=== PATIENT | female | born 2005 | race Caucasian/White ===

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

== ENCOUNTER 2025-02-17 23:45 | Emergency (ER) | payer MEDICAID, SELFPAY ==
[2025-02-17 23:50] VITALS: BMI 20.9
[2025-02-17 23:58] VITALS: BP 151/100; PULSE 80; RESP 18; TEMP 36.9; O2SAT 99
[2025-02-18 00:32] LABS: Bilirubin Urine Negative (Negative); Blood Urine Negative (Negative); Glucose Urine UA Negative (Normal); HCG Qualitative Urine. Negative (Negative); Ketones Urine Trace (Negative); Leukocyte Esterase Urine Trace (Negative); Nitrate Urine Negative (Negative); Protein Urine Negative (Negative); Specific Gravity, Urine 1.024 (1.005-1.030); Urine Appearance Cloudy (CLEAR); Urine Color Yellow (Yellow)
[2025-02-18 00:34] LABS: Add Urine Microscopic? YES; Bacteria Urine 3+ /hpf; WBC Urine 0-5 /hpf (0-5)
--- NOTE | 2025-02-18 00:34 | W.ED.PSYCHS ---
Documented by User: ABNER Siu 02/18/25 02:34 HPI - Psych General: Chief Complaint: Psychiatric Symptoms Stated Complaint: mhe Time Seen by Provider: 02/18/25 00:00 History of Present Illness: Patient is 19-year-old female presents to ED after cutting her wrist. She denies any suicide intent. She said that she knows how deep cut it, and she does not want to . She was anxious because she had no one to talk to and typically she listens to music or drawls. She states that she is chronically on Adderall by [facility] doctor at [facility], otherwise she does not have any methamphetamines in her system and does utilize marijuana. She states that she recently found out she was , her boyfriend left her for a 15-year-old girl, and she is bad about cutting herself. She states her last cutting was 3 months ago. She was not suicidal at that time either per patient. The boyfriend called the police, the police on scene told her she had to come to the hospital and be checked out or she replaced on 96-hour hold. Patient stated she came on a voluntary basis so she would be placed on a 96-hour hold. Associated symptoms: Deny auditory hallucinations, depression, homicidal ideation or suicidal ideation Related Data Home Medications ?Medication ?Instructions ?Recorded ?Confirmed No Known Home Medications 11/04/24 11/04/24 Allergies Allergy/AdvReac Type Severity Reaction Status Date / Time No Known Allergies Allergy Unverified 10/27/24 13:37 Review of Systems Const: Denies: fever(s) or chills Eyes: Denies: change in vision or blurry vision Card: Denies: chest pain or palpitations Resp: Denies: dyspnea or non-productive cough GI: Denies: abdominal pain, nausea or vomiting Musc: Denies: neck pain, back pain, extremity pain or extremity swelling Skin/Breast: Reports: skin tenderness (self inflicted); Denies: rash or pruritus Neuro: Denies: headache(s) or numbness in extremities Psych: Reports: anxiety, mood swings and panic attacks; Denies: depression, loss of interest, auditory hallucinations, suicidal ideation or homicidal ideation PFSH ED PFSH: Social History Smoking and tobacco/nicotine status: unknown if used tobacco/nicotine Physical Exam Const: COMMON NORMALS: no acute distress, average body habitus and patient oriented x3 GENERAL APPEARANCE: cooperative ORIENTATION/CONSCIOUSNESS: Yes awake HENMT: COMMON NORMALS: normocephalic and atraumatic HEAD & SCALP: normocephalic and atraumatic Lymph: LYMPHATIC: no lymphadenopathy noted Resp: COMMON NORMALS: normal respiratory effort Cardio: COMMON NORMALS: regular rate and regular rhythm RATE: regular rate RHYTHM: regular rhythm GI: COMMON NORMALS: Normal to inspection, nondistended, normoactive bowel sounds present : COMMON NORMALS: Yes no CVA tenderness BLADDER/KIDNEY EXAM: Yes no CVA tenderness Back/Pelvis: COMMON NORMALS: no CVA tenderness Extremity: COMMON NORMALS: normal to inspection and full ROM Neuro: COMMON NORMALS: patient oriented x3 Psych: COMMON NORMALS: Normal thought process present and cooperative THOUGHT PROCESS: Normal thought process present Course Consultations: Consultation #1: Discussed with Dr. Munoz. Patient states she is not suicidal. She would like to talk to the psychiatrist on a voluntary basis. She does not however want to stay the night. Dr. Munoz thinks it would be best for her to stay here in the ER, he has dismissal today, and then he will bring her over and visit with her. At this time she is voluntary. Vital Signs: Vital signs: Vital Signs Temperature 98.1 F 02/18/25 04:58 Pulse Rate 68 02/18/25 04:58 Respiratory Rate 18 02/17/25 23:58 Blood Pressure 112/58 02/18/25 04:58 Pulse Oximetry 97 02/18/25 04:58 MDM - Psych Medical Decision Making 19-year-old female with cutting bilateral wrist with superficial wounds. Discussed with Dr. Munoz that feels it is best to consult with her in the morning. Will obtain workup and defer to psychiatrist for a.m. discharges. Lab Data 02/18/25 01:45 02/18/25 01:45 Laboratory Results WBC 10.93 10^3/uL (4.5-13.0) 02/18/25 01:45 RBC 4.33 10^6/uL (3.85-5.65) 02/18/25 01:45 Hgb 13.00 g/dL (12.4-14.8) 02/18/25 01:45 Hct 38.2 % (36-47) 02/18/25 01:45 MCV 88.2 fl (85-98) 02/18/25 01:45 MCH 30.0 pg (27-33) 02/18/25 01:45 MCHC 34.0 g/dL (30-55) 02/18/25 01:45 RDW 13.2 % (12.1-15.1) 02/18/25 01:45 Plt Count 410 10^3/cmm (157-399) H 02/18/25 01:45 MPV 8.5 fL (7.4-10.4) 02/18/25 01:45 Neut % (Auto) 59.2 % 02/18/25 01:45 Lymph % (Auto) 33.0 % 02/18/25 01:45 [place] % (Auto) 5.8 % 02/18/25 01:45 Eos % (Auto) 0.7 % 02/18/25 01:45 Baso % (Auto) 0.7 % 02/18/25 01:45 Neut # (Auto) 6.46 10^3/uL (1.8-8.0) 02/18/25 01:45 Lymph # (Auto) 3.6 10^3/uL (1.5-6.5) 02/18/25 01:45 [place] # (Auto) 0.6 10^3/uL (0.2-0.9) 02/18/25 01:45 Eos # (Auto) 0.1 10^3/uL (0.0-0.8) 02/18/25 01:45 Baso # (Auto) 0.1 10^3/uL (0.0-0.1) 02/18/25 01:45 Nucleated RBC % (auto) 0 % 02/18/25 01:45 Nucleated RBCs # 0.0 /100WBC 02/18/25 01:45 Sodium 137 mmol/L (136-145) 02/18/25 01:45 Potassium 3.8 mmol/L (3.5-5.1) 02/18/25 01:45 Chloride 101 mmol/L (98-107) 02/18/25 01:45 Carbon Dioxide 22 mmol/L (22-29) 02/18/25 01:45 Anion Gap 17.8 (5-19) 02/18/25 01:45 BUN 14 mg/dL (6-20) 02/18/25 01:45 Creatinine 0.7 mg/dL (0.5-0.9) 02/18/25 01:45 GFR Calculation 107.8 mL/min (90-130) 02/18/25 01:45 Glucose 95 mg/dL (65-115) 02/18/25 01:45 Calculated Osmolality 284 mOsm/kg (285-295) L 02/18/25 01:45 Calcium 9.9 mg/dL (8.5-10.5) 02/18/25 01:45 Total Bilirubin 0.4 mg/dL (0.15-1.2) 02/18/25 01:45 AST 16 U/L (0-32) 02/18/25 01:45 ALT 18 U/L (0-33) 02/18/25 01:45 Alkaline Phosphatase 84 U/L (35-105) 02/18/25 01:45 Total Protein 7.8 g/dL (6.6-8.7) 02/18/25 01:45 Albumin 4.5 g/dL (3.5-5.2) 02/18/25 01:45 Globulin 3.3 g/dL (1.3-4.6) 02/18/25 01:45 TSH 2.06 uIU/mL (0.27-4.20) 02/18/25 01:45 HCG, Qual Negative (Negative) 02/18/25 00:01 Urine Color Yellow (Yellow) 02/18/25 00:01 Urine Appearance Cloudy (CLEAR) A 02/18/25 00:01 Urine pH 6.0 (5-7) 02/18/25 00:01 Ur Specific [place] 1.024 (1.005-1.030) 02/18/25 00:01 Urine Protein Negative (Negative) 02/18/25 00:01 Urine Glucose (UA) Negative (Normal) 02/18/25 00: Urine Ketones Trace (Negative) 02/18/25 00:01 Urine Blood Negative (Negative) 02/18/25 00:01 Urine Nitrate Negative (Negative) 02/18/25 00:01 Urine Bilirubin Negative (Negative) 02/18/25 00:01 Urine Urobilinogen 1.0 mg/dL (Negative) 02/18/25 00:01 Ur Leukocyte Esterase Trace (Negative) A 02/18/25 00:01 Urine RBC 11-20 /hpf (0-2) H 02/18/25 00:01 Urine WBC 0-5 /hpf (0-5) 02/18/25 00:01 Ur Squamous Epith Cells 11-20 /hpf (0-5) H 02/18/25 00:01 Amorphous Sediment Not Reportable 02/18/25 00:01 Urine Bacteria 3+ /hpf (NONE) H 02/18/25 00:01 Hyaline Casts 0.40 /lpf 02/18/25 00:01 Salicylates < 0.3 mg/dL (3-10) L 02/18/25 01:45 Urine Opiates Screen Negative ng/mL (Negative) 02/18/25 00:01 Acetaminophen < 5.0 ug/mL (10-30) L 02/18/25 01:45 Ur Barbiturates Screen Negative ng/mL (Negative) 02/18/25 00:01 Ur Phencyclidine Scrn Negative ng/mL (Negative) 02/18/25 00:01 Ur Amphetamines Screen Negative ng/mL (Negative) 02/18/25 00:01 U Benzodiazepines Scrn Negative ng/mL (Negative) 02/18/25 00:01 Urine Cocaine Screen Negative ng/mL (Negative) 02/18/25 00:01 U Marijuana (THC) Screen Negative ng/mL (Negative) 02/18/25 00:01 Ethyl Alcohol < 10 mg/dL (0-10) 02/18/25 01:45 No radiology studies performed this visit Discharge Plan Discharge Patient Disposition: Home Clinical Impression: Self-cutting of wrist Condition: Stable Prescriptions: No Action No Known Home Medications Discharge Orders: Discharge ED (Routine); Ordered 02/18/25 Ordered By: Christine Farr Discharge Diet: Usual diet Patient Instructions: Patient Portal & Pranav Instructions Activity Restrictions/Additional Instructions: As we discussed, continue plan to follow-up with your psychiatrist and [place]. You have been offered resources for counseling and therapy here in [place] but have declined. I recommend you reach out to your primary care provider or your psychiatrist about obtaining the services back home. You may return to the emergency department at anytime for any further concerns you may have or any feelings of suicide. Print Language: French Coding Level of Care Code ED Eight Arm Operator for [place] Fwd Documented by User: ABNER Yun 02/18/25 10:20 HPI - Psych General: Chief Complaint: Psychiatric Symptoms Stated Complaint: mhe Time Seen by Provider: 02/18/25 00:00 Related Data Home Medications ?Medication ?Instructions ?Recorded ?Confirmed No Known Home Medications 11/04/24 11/04/24 Allergies Allergy/AdvReac Type Severity Reaction Status Date / Time No Known Allergies Allergy Unverified 10/27/24 13:37 PFS ED PFSH: Social History Smoking and tobacco/nicotine status: unknown if used tobacco/nicotine Course Vital Signs: Vital signs: Vital Signs Temperature 98.1 F 02/18/25 04:58 Pulse Rate 68 02/18/25 04:58 Respiratory Rate 18 02/17/25 23:58 Blood Pressure 112/58 02/18/25 04:58 Pulse Oximetry 97 02/18/25 04:58 MDM - Psych Medical Decision Making 19-year-old female with cutting bilateral wrist with superficial wounds. Discussed with Dr. Munoz that feels it is best to consult with her in the morning. Will obtain workup and defer to psychiatrist for a.m. discharges. Dr. Munoz has came and evaluated patient here in the emergency department. He feels patient can be safely discharged. Please see his note for full psychiatric assessment. Patient states she feels comfortable going home at this time. Patient had stated throughout her emergency visit that she was not suicidal. Patient states she does see a psychiatrist back home in [place], [place]. She feels comfortable following up with them. Offered counseling/therapy resources here in [place] but patient declines. She will follow-up with her psychiatrist and primary care and try to get resources for the services back home. Return to ED precautions discussed. Medical Records I reviewed the patient's medical records. Lab Data I reviewed the patient's lab results. 02/18/25 01:45 02/18/25 01:45 Laboratory Results WBC 10.93 10^3/uL (4.5-13.0) 02/18/25 01:45 RBC 4.33 10^6/uL (3.85-5.65) 02/18/25 01:45 Hgb 13.00 g/dL (12.4-14.8) 02/18/25 01:45 Hct 38.2 % (36-47) 02/18/25 01:45 MCV 88.2 fl (85-98) 02/18/25 01:45 MCH 30.0 pg (27-33) 02/18/25 01:45 MCHC 34.0 g/dL (30-55) 02/18/25 01:45 RDW 13.2 % (12.1-15.1) 02/18/25 01:45 Plt Count 410 10^3/cmm (157-399) H 02/18/25 01:45 MPV 8.5 fL (7.4-10.4) 02/18/25 01:45 Neut % (Auto) 59.2 % 02/18/25 01:45 Lymph % (Auto) 33.0 % 02/18/25 01:45 [place] % (Auto) 5.8 % 02/18/25 01:45 Eos % (Auto) 0.7 % 02/18/25 01:45 Baso % (Auto) 0.7 % 02/18/25 01:45 Neut # (Auto) 6.46 10^3/uL (1.8-8.0) 02/18/25 01:45 Lymph # (Auto) 3.6 10^3/uL (1.5-6.5) 02/18/25 01:45 [place] # (Auto) 0.6 10^3/uL (0.2-0.9) 02/18/25 01:45 Eos # (Auto) 0.1 10^3/uL (0.0-0.8) 02/18/25 01:45 Baso # (Auto) 0.1 10^3/uL (0.0-0.1) 02/18/25 01:45 Nucleated RBC % (auto) 0 % 02/18/25 01:45 Nucleated RBCs # 0.0 /100WBC 02/18/25 01:45 Sodium 137 mmol/L (136-145) 02/18/25 01:45 Potassium 3.8 mmol/L (3.5-5.1) 02/18/25 01:45 Chloride 101 mmol/L (98-107) 02/18/25 01:45 Carbon Dioxide 22 mmol/L (22-29) 02/18/25 01:45 Anion Gap 17.8 (5-19) 02/18/25 01:45 BUN 14 mg/dL (6-20) 02/18/25 01:45 Creatinine 0.7 mg/dL (0.5-0.9) 02/18/25 01:45 GFR Calculation 107.8 mL/min (90-130) 02/18/25 01:45 Glucose 95 mg/dL (65-115) 02/18/25 01:45 Calculated Osmolality 284 mOsm/kg (285-295) L 02/18/25 01:45 Calcium 9.9 mg/dL (8.5-10.5) 02/18/25 01:45 Total Bilirubin 0.4 mg/dL (0.15-1.2) 02/18/25 01:45 AST 16 U/L (0-32) 02/18/25 01:45 ALT 18 U/L (0-33) 02/18/25 01:45 Alkaline Phosphatase 84 U/L (35-105) 02/18/25 01:45 Total Protein 7.8 g/dL (6.6-8.7) 02/18/25 01:45 Albumin 4.5 g/dL (3.5-5.2) 02/18/25 01:45 Globulin 3.3 g/dL (1.3-4.6) 02/18/25 01:45 TSH 2.06 uIU/mL (0.27-4.20) 02/18/25 01:45 HCG, Qual Negative (Negative) 02/18/25 00:01 Urine Color Yellow (Yellow) 02/18/25 00:01 Urine Appearance Cloudy (CLEAR) A 02/18/25 00:01 Urine pH 6.0 (5-7) 02/18/25 00:01 Ur Specific [place] 1.024 (1.005-1.030) 02/18/25 00:01 Urine Protein Negative (Negative) 02/18/25 00:01 Urine Glucose (UA) Negative (Normal) 02/18/25 00:01 Urine Ketones Trace (Negative) 02/18/25 00:01 Urine Blood Negative (Negative) 02/18/25 00:01 Urine Nitrate Negative (Negative) 02/18/25 00:01 Urine Bilirubin Negative (Negative) 02/18/25 00:01 Urine Urobilinogen 1.0 mg/dL (Negative) 02/18/25 00:01 Ur Leukocyte Esterase Trace (Negative) A 02/18/25 00:01 Urine RBC 11-20 /hpf (0-2) H 02/18/25 00:01 Urine WBC 0-5 /hpf (0-5) 02/18/25 00:01 Ur Squamous Epith Cells 11-20 /hpf (0-5) H 02/18/25 00:01 Amorphous Sediment Not Reportable 02/18/25 00:01 Urine Bacteria 3+ /hpf (NONE) H 02/18/25 00:01 Hyaline Casts 0.40 /lpf 02/18/25 00:01 Salicylates < 0.3 mg/dL (3-10) L 02/18/25 01:45 Urine Opiates Screen Negative ng/mL (Negative) 02/18/25 00:01 Acetaminophen < 5.0 ug/mL (10-30) L 02/18/25 01:45 Ur Barbiturates Screen Negative ng/mL (Negative) 02/18/25 00:01 Ur Phencyclidine Scrn Negative ng/mL (Negative) 02/18/25 00:01 Ur Amphetamines Screen Negative ng/mL (Negative) 02/18/25 00:01 U Benzodiazepines Scrn Negative ng/mL (Negative) 02/18/25 00:01 Urine Cocaine Screen Negative ng/mL (Negative) 02/18/25 00:01 U Marijuana (THC) Screen Negative ng/mL (Negative) 02/18/25 00:01 Ethyl Alcohol < 10 mg/dL (0-10) 02/18/25 01:45 Discharge Plan Discharge Patient Disposition: Home Clinical Impression: Self-cutting of wrist Condition: Stable Prescriptions: No Action No Known Home Medications Discharge Orders: Discharge ED (Routine); Ordered 02/18/25 Ordered By: Christine Farr Discharge Diet: Usual diet Patient Instructions: Patient Portal & Pranav Instructions Activity Restrictions/Additional Instructions: As we discussed, continue plan to follow-up with your psychiatrist and [place]. You have been offered resources for counseling and therapy here in [place] but have declined. I recommend you reach out to your primary care provider or your psychiatrist about obtaining the services back home. You may return to the emergency department at anytime for any further concerns you may have or any feelings of suicide. Print Language: French Coding Level of Care Code ED Eight Arm Operator for [facility] [place]oria
[2025-02-18 00:55] LABS: Amphetamines Screen Urine Negative (Negative); Barbiturates Screen Urine Negative (Negative); Benzodiazepines Screen Urine Negative (Negative); Cocaine Screen Urine Negative (Negative); Opiate Screen Urine Negative (Negative); PCP Screen Urine Negative (Negative); THC Screen Urine Negative (Negative)
[2025-02-18 01:54] LABS: Basophils # 0.1 10^3/uL (0.0-0.1); Basophils % 0.7 %; Eosinophils # 0.1 10^3/uL (0.0-0.8); Eosinophils % 0.7 %; Hematocrit 38.2 % (36-47); Lymphocytes # 3.6 10^3/uL (1.5-6.5); Mean Corpuscular Volume 88.2 fl (85-98); Mean Platelet Volume 8.5 fL (7.4-10.4); Monocytes # 0.6 10^3/uL (0.2-0.9); Monocytes % 5.8 %; Neutrophils # 6.46 10^3/uL (1.8-8.0); Neutrophils % 59.2 %; Nucleated Red Blood Cells % 0 %; Platelet Count 410 10^3/cmm (157-399); Red Blood Count 4.33 10^6/uL (3.85-5.65); Red Cell Distribution Width 13.2 % (12.1-15.1); White Blood Count 10.93 10^3/uL (4.5-13.0)
[2025-02-18 02:22] LABS: Alanine Aminotransferase 18 U/L (0-33); Albumin Level 4.5 g/dL (3.5-5.2); Alkaline Phosphatase 84 U/L (35-105); Anion Gap 17.8 (5-19); Aspartate Amino Transferase 16 U/L (0-32); Blood Urea Nitrogen 14 mg/dL (6-20); Calcium 9.9 mg/dL (8.5-10.5); Carbon Dioxide 22 mmol/L (22-29); Chloride 101 mmol/L (98-107); Creatinine Clr Calc Pharmacy 120.7402; Globulin 3.3 g/dL (1.3-4.6); Glomerular Filtration Rate 107.8 mL/min (90-130); Glucose 95 mg/dL (65-115); Osmolality Calculated 284 mOsm/kg (285-295); Potassium 3.8 mmol/L (3.5-5.1); Sodium 137 mmol/L (136-145); Thyroid Stimulating Hormone 2.06 uIU/mL (0.27-4.20); Total Bilirubin 0.4 mg/dL (0.15-1.2); Total Protein 7.8 g/dL (6.6-8.7)
[2025-02-18 02:29] LABS: Acetaminophen < 5.0 ug/mL (10-30); Alcohol Level < 10 mg/dL (0-10); Salicylate < 0.3 mg/dL (3-10)
[2025-02-18 04:58] VITALS: BP 112/58; PULSE 68; TEMP 36.7; O2SAT 97
== END 2025-02-18 10:23 | disposition home or self-care (01) ==
PROVIDERS: Emergency Provider Physician Assistant
DX: R45.88 Nonsuicidal self-harm (principal); S61.512A Laceration without foreign body of left wrist, initial encounter; S61.511A Laceration without foreign body of right wrist, initial encounter; X58.XXXA Exposure to other specified factors, initial encounter
CPT/HCPCS: 36415; 80053; 80306; 80307; 81001; 81025; 84443; 85025; 99283

== ENCOUNTER → 2025-03-16 08:15 | Outpatient (BNVA) | payer MEDICAID, SELFPAY | PROVIDERS: Visit Provider Nurse Practitioner Women's Health | DX: R10.2 Pelvic and perineal pain (principal); N92.0 Excessive and frequent menstruation with regular cycle; N92.6 Irregular menstruation, unspecified | CPT/HCPCS: 80053; 81025; 84146; 84439; 84443; 84702; 85025; 87086; 87491; 87591; 87661 ==